=== PATIENT | male | born 1955 | race Asian ===

== ENCOUNTER 2019-01-14 13:29 | Emergency (ER) | payer OTHER ==
[~2019-01-14] VITALS: Ht 180.3 cm; Wt 106.4 kg
[~2019-01-14 13:29] MED LIST: ASPI-556 PO; CARV3.1262 PO; CLON.5 PO; LISI-660 PO; OMEP20 PO; PARO10TA89 PO; PRAV40TA4 PO; SITA50 PO; ZOLP5 PO
[2019-01-14 13:53] LABS: GLUCOSE,POINT OF CARE 146 MG/DL (70-110)
[2019-01-14 16:20] VITALS: BP 128/82
== END 2019-01-14 16:33 | disposition home or self-care (01) ==
LOC: EMS 13:30
DX: H61.22 Impacted cerumen, left ear (principal); I10 Essential (primary) hypertension; E11.9 Type 2 diabetes mellitus without complications; E78.00 Pure hypercholesterolemia, unspecified; F41.9 Anxiety disorder, unspecified; F32.9 Major depressive disorder, single episode, unspecified; Z87.891 Personal history of nicotine dependence; Z79.899 Other long term (current) drug therapy; Z79.82 Long term (current) use of aspirin
CPT/HCPCS: 69209